=== PATIENT | female | born 1955 | race African-American/Black ===

== ENCOUNTER 2017-04-24 03:21 | Observation (INO) | payer OTHER, MEDICAID ==
[2017-04-24] VITALS (7 sets, daily range): BP systolic 128–156; BP diastolic 62–84; PULSE 83–97; RESP 16–20; TEMP 97.8–98.6; O2SAT 96–98
[~2017-04-24] VITALS: Ht 170.2 cm; Wt 60.0 kg
[~2017-04-24 03:21] MED LIST: BUPR100T4 PO; BUPR150CR PO; HALD50IN IM; HALDOL PO; HALO100P IM; HALO10TA PO; LISI-515 PO; NOVOLOGP2 SQ; SIMV20TA PO
[2017-04-24 03:58] LABS: AUTOMATED NEUTROPHIL # 2.8 TH/MM3 (1.8-7.7); BASOPHIL % 0.6 % (0.0-2.0); EOSINOPHIL # 0.2 TH/MM3 (0-0.4); EOSINOPHIL % 3.3 % (0.0-4.0); HEMATOCRIT 40.8 % (35.0-46.0); HEMOGLOBIN 13.7 GM/DL (11.6-15.3); LYMPH % 37.1 % (9.0-44.0); LYMPHOCYTE # 2.3 TH/MM3 (1.0-4.8); MEAN CELL VOLUME 85.9 FL (80.0-100.0); MEAN CORPUSCULAR HEMOGLOBIN 28.9 PG (27.0-34.0); MEAN CORPUSCULAR HGB CONC 33.6 % (32.0-36.0); MEAN PLATELET VOLUME 8.9 FL (7.0-11.0); MONO % 12.7 % (0.0-8.0); MONOCYTE # 0.8 TH/MM3 (0-0.9); NEUT % 46.3 % (16.0-70.0); PLATELET COUNT 241 TH/MM3 (150-450); RED BLOOD COUNT 4.75 MIL/MM3 (4.00-5.30); RED CELL DISTRIBUTION WIDTH 14.9 % (11.6-17.2); WHITE BLOOD COUNT 6.1 TH/MM3 (4.0-11.0)
[2017-04-24 04:16] LABS: ALKALINE PHOSPHATASE 105 U/L (45-117); TOTAL BILIRUBIN ADULT 0.3 MG/DL (0.2-1.0); TROPONIN I LESS THAN 0.02 NG/ML (0.02-0.05)
[2017-04-24 04:20] LABS: ALBUMIN 3.9 GM/DL (3.4-5.0); ALT (GPT) 47 U/L (10-53); AST (GOT) 37 U/L (15-37); BICARBONATE 29.5 MEQ/L (21.0-32.0); BLOOD UREA NITROGEN 14 MG/DL (7-18); CALCIUM 8.8 MG/DL (8.5-10.1); CHLORIDE 104 MEQ/L (98-107); CREATININE 1.19 MG/DL (0.50-1.00); GLOMERULAR FILTRATION RATE 55 ML/MIN (>89); GLUCOSE,RANDOM 112 MG/DL (74-106); LIPASE 106 U/L (73-393); SODIUM (NA) 139 MEQ/L (136-145)
--- NOTE | 2017-04-24 04:36 | PD ---
HPI Chief Complaint: Dizziness Time Seen by Provider: 03:32 Travel History International Travel<30 days: No Contact w/Intl Traveler<30days: No Traveled to known affect area: No History of Present Illness HPI Patient is a 62-year-old female who woke up in the middle of the night diaphoretic dizzy and nauseous. She called the paramedics they found her to be mildly hypoglycemic 86 finger stick. She reports she becomes symptomatic at that level of blood sugar. She takes NovoLog in the morning and the night yesterday was her birthday so she was out and she did not eat as much as she normally would have and thinks maybe this the reason her sugar bottomed out in the night. She has a history of diabetes insulin-dependent and she also has a psychiatric history for she is on Haldol and Wellbutrin he has had no change in her medications and no change in her insulin regimen. Denies dysuria or any other source of infection that could cause sugar to bottom out, pt reports having had CP in the ambulnce and the PAaramendics did rhythm strip which showed bigeminy. but in ER no bigeminy seen. I reports this to pt and she says it was due her haldol and wellbutrin. .. PFSH Past Medical History Hx Anticoagulant Therapy: No Autoimmune Disease: No Blood Disorders: No Bipolar Disorder: Yes (DX 1986) Depression: Yes Cancer: No Cardiovascular Problems: No Chemotherapy: No Cerebrovascular Accident: No Diabetes: Yes Patient Takes Glucophage: No Diminished Hearing: No Endocrine: Yes Genitourinary: No Hypertension: Yes Immune Disorder: No Implanted Vascular Access Dvce: Yes Musculoskeletal: No Neurologic: No Psychiatric: Yes (Extensive hx of treatment for Schizophrenia) Reproductive: No Respiratory: No Immunizations Current: Yes Migraines: No Radiation Therapy: No Schizophrenia: Yes Seizures: No Sickle Cell Disease: No Influenza Vaccination: No Menopausal: Yes : 2 Para: 2 Ectopic : No Ovarian Cysts: No Tubal Ligation: Yes Past Surgical History Abdominal Surgery: No AICD: No Arteriovenous Shunt: No Cardiac Surgery: No Section: No Ear Surgery: No Endocrine Surgery: No Eye Surgery: No Genitourinary Surgery: No Gynecologic Surgery: No Hysterectomy: No Insulin Pump: No Joint Replacement: No Oral Surgery: No Pacemaker: No Thoracic Surgery: No Other Surgery: Yes Social History Alcohol Use: No Tobacco Use: Yes Substance Use: No Allergies-Medications (Allergen,Severity, Reaction): Coded Allergies: carbamazepine (Unverified Allergy, Mild, RASH/HIVES, 04/24/17) Uncoded Allergies: ORAGEL (Allergy, Mild, LIP HAS SWELLED SINCE STARTING, 05/15/07) Reported Meds & Prescriptions Reported Meds & Active Scripts Active Haldol Decanoate Inj (Haloperidol Decanoate) 50 Mg/Ml Inj 100 Mg IM Q30D 30 Days Haloperidol 10 Mg Tab 20 Mg PO BID 7 Days Wellbutrin SR 12 HR (Bupropion HCl) 150 Mg Tab 150 Mg PO BID 14 Days Reported Simvastatin 20 Mg Tab 20 Mg PO DAILY Novolog Inj (Insulin Aspart) 1,000 Unit/10 Ml Vial 20 Units SQ BID Lisinopril 20 Mg Tab 20 Mg PO BID Review of Systems Except as stated in HPI: all other systems reviewed are Neg General / Constitutional: Positive: Chills Gastrointestinal: Positive: Nausea (sweating nausea diaphoretic) Skin: Positive Other (diaphoresis while awakened in bed dizziness ) Physical Exam Narrative GENERAL: slightly flat affected SKIN: Warm and dry. HEAD: Atraumatic. Normocephalic. EYES: Pupils equal and round. No scleral icterus. No injection or drainage. ENT: No nasal bleeding or discharge. Mucous membranes pink and moist. NECK: Trachea midline. No JVD. CARDIOVASCULAR: Regular rate and rhythm. RESPIRATORY: No accessory muscle use. Clear to auscultation. Breath sounds equal bilaterally. GASTROINTESTINAL: Abdomen soft, non-tender, nondistended. Hepatic and splenic margins not palpable. MUSCULOSKELETAL: Extremities without clubbing, cyanosis, or edema. No obvious deformities. NEUROLOGICAL: Awake and alert. No obvious cranial nerve deficits. Motor grossly within normal limits. Five out of 5 muscle strength in the arms and legs. Normal speech. PSYCHIATRIC: Appropriate mood and affect; insight and judgment normal. EKG NSR [address] segmental depression nor elevation Data Data Last Documented VS Vital Signs Date Time Temp Pulse Resp B/P (MAP) Pulse Ox O2 Delivery O2 Flow Rate FiO2 04/24/17 03:33 98.6 97 16 128/62 (84) 97 Orders Orders Electrocardiogram (04/24/17 03:38) Complete Blood Count With Diff (04/24/17 03:38) Comprehensive Metabolic Panel (04/24/17 03:38) Troponin I (1/27/18 03:38) Lipase (04/24/17 03:38) Ua Includes Microscopic (04/24/17 03:38) Admit Order (Ed Use Only) (04/24/17 05:54) Place In Observation (04/24/17 05:55) Activity Bed Rest With Brp (04/24/17 05:55) Vital Signs (Adult) Q4H (04/24/17 05:55) Cardiac Rhythm .As Directed (04/24/17 05:55) Notify Dr: Other .PRN (04/24/17 05:55) Notify Dr. Parameters (04/24/17 05:55) Resp Oxygen Nasal Cannula (04/24/17 ) Ckmb (Isoenzyme) Profile (04/24/17 05:55) Ckmb (Isoenzyme) Profile (04/24/17 08:55) Troponin I (04/24/17 05:55) Troponin I (04/24/17 08:55) Electrocardiogram (04/24/17 05:55) Electrocardiogram (04/24/17 08:55) ^ Obtain (04/24/17 05:55) Sodium Chloride 0.9% Flush (Ns Flush) (04/24/17 06:00) Sodium Chloride 0.9% Flush (Ns Flush) (04/24/17 09:00) Dental Ceramist Helper / Telemetry JOSE.Q8H (04/24/17 05:55) CKMB (04/24/17 06:40) CKMB% (04/24/17 06:40) CKMB (04/24/17 09:48) CKMB% (04/24/17 09:48) Labs Laboratory Tests Test 04/24/17 03:40 04/24/17 04:30 White Blood Count 6.1 TH/MM3 Red Blood Count 4.75 MIL/MM3 Hemoglobin 13.7 GM/DL Hematocrit 40.8 % Mean Corpuscular Volume 85.9 FL Mean Corpuscular Hemoglobin 28.9 PG Mean Corpuscular Hemoglobin Concent 33.6 % Red Cell Distribution Width 14.9 % Platelet Count 241 TH/MM3 Mean Platelet Volume 8.9 FL Neutrophils (%) (Auto) 46.3 % Lymphocytes (%) (Auto) 37.1 % Monocytes (%) (Auto) 12.7 % Eosinophils (%) (Auto) 3.3 % Basophils (%) (Auto) 0.6 % Neutrophils # (Auto) 2.8 TH/MM3 Lymphocytes # (Auto) 2.3 TH/MM3 Monocytes # (Auto) 0.8 TH/MM3 Eosinophils # (Auto) 0.2 TH/MM3 Basophils # (Auto) 0.0 TH/MM3 CBC Comment DIFF FINAL Differential Comment Blood Urea Nitrogen 14 MG/DL Creatinine 1.19 MG/DL Random Glucose 112 MG/DL Total Protein 8.3 GM/DL Albumin 3.9 GM/DL Calcium Level 8.8 MG/DL Alkaline Phosphatase 105 U/L Aspartate Amino Transf (AST/SGOT) 37 U/L Alanine Aminotransferase (ALT/SGPT) 47 U/L Total Bilirubin 0.3 MG/DL Sodium Level 139 MEQ/L Potassium Level 4.2 MEQ/L Chloride Level 104 MEQ/L Carbon Dioxide Level 29.5 MEQ/L Anion Gap 6 MEQ/L Estimat Glomerular Filtration Rate 55 ML/MIN Troponin I LESS THAN 0.02 NG/ML Lipase 106 U/L Urine Color DARK-YELLOW Urine Turbidity HAZY Urine pH 5.5 Urine Specific [place] 1.035 Urine Protein 100 mg/dL Urine Glucose (UA) 300 mg/dL Urine Ketones TRACE mg/dL Urine Occult Blood NEG Urine Nitrite NEG Urine Bilirubin NEG Urine Urobilinogen 2.0 MG/DL Urine Leukocyte Esterase SMALL Urine RBC 1 /hpf Urine WBC 8 /hpf Urine Squamous Epithelial Cells 3 /hpf Urine Hyaline Casts 10 /lpf Urine Mucus MANY /lpf MDM Medical Decision Making Medical Screen Exam Complete: Yes Emergency Medical Condition: Yes Differential Diagnosis chest pain of ischemia vs hypoglycemic symptomatology , vs ectopy causing dizziness vs Neurologic cause of dizziness. Bigeminy in ambulance Narrative Course Pt is worked up for ischemia cause of her dizziness and sweating episode in bed. her bigeminy she thinks could be due to haldol and wellbutrin, first trop negative her first EKG is NSR no ectopy will admit Jose Luis Alejandre MD Apr 24, 2017 04:36
[2017-04-24 04:49] LABS: TOTAL PROTEIN 8.3 GM/DL (6.4-8.2)
[2017-04-24 05:00] LABS: BLOOD, URINE NEG (NEG); GLUCOSE,URINE 300 mg/dL (NEG); HYALINE CAST, URINE 10 /lpf (RARE); KETONE, URINE TRACE mg/dL (NEG); MUCUS URINE MANY /lpf (OCC); NITRITE,URINE NEG (NEG); PH, URINE 5.5 (5.0-8.5); SQUAMOUS EPITHELIAL CELL URINE 3 /hpf (0-5); URINE COLOR DARK-YELLOW (YELLW/STRAW); URINE LEUKOCYTE ESTERASE SMALL (NEG)
[2017-04-24 05:02] LABS: BILIRUBIN, URINE NEG (NEG)
[2017-04-24] MEDS ORDERED: SODIUM CHLORIDE 0.9% FLUSH 10 ML FLUSH IV FLUSH PRN (06:00)
[2017-04-24] MEDS ORDERED: ASPIRIN 81 MG CHEW TAB CHEW ONE (06:45)
[2017-04-24] MEDS ORDERED: ONDANSETRON HCL 4 MG/2 ML VIAL IV PUSH PRN (07:30)
[2017-04-24] MEDS ORDERED: ACETAMINOPHEN 500 MG CPLT PO PRN (07:30)
[2017-04-24] MEDS ORDERED: NITROGLYCERIN 0.4 MG SL 25 TABS/BTL SL PRN (07:30)
[2017-04-24 07:44] LABS: TROPONIN I LESS THAN 0.02 NG/ML (0.02-0.05)
--- NOTE | 2017-04-24 07:46 | HHI.HP ---
HPI Primary Care Physician Christoph Prabhakar MD Chief Complaint Chest pain History of Present Illness 62-year-old male with history of type 2 diabetes, hypertension, hyperlipidemia, and current smoker presents to emergency room for further evaluation of dizziness. Reporting early this morning woke up feeling dizzy and nauseous. Became worried symptoms may be related to blood glucose, therefore called EMS. Glucose reported to be 86 prior to EMS arrival and a glucose of 115 taken by EMS. During EVAC ride, developed chest pain. Onset approximately 2 AM. Location substernal. Characterized as sharp, needle pain. No radiation. Associated symptoms of nausea and diaphoresis. Denied vomiting or dyspnea. Duration 20 minutes. Denies similar pain in the past. No known precipitating or relieving factors. Continues to have intermittent sharp pain since arrival to ER. Review of Systems General: No fatigue,weakness, fever, chills, recent illness, or change in appetite. Has been her general state of health. HEENT: No HINKLE, no vision changes, no nasal congestion or drainage, no dysphasia CV: As stated above. No palpitations or dizziness. RESP: No SOB, cough, wheeze. 2 weeks ago seen by her PCP for coughing up blood and was told blood was due to irritation from coughing. Symptoms resolved within 2 days. GI: No nausea, vomiting, bowel changes, diarrhea, constipation, pain, distention , melena, or blood in the stool. No unintentional weight gain or weight loss. : No dysuria, urgency, frequency EXT: No lower leg edema, no paraesthesias MS: No discomfort or change in ROM NEURO: No difficulty with balance, LOC, motor/sensory deficits PSYCH: History of bipolar, reports stable on current medication regimen. No depression or suicidal ideation SKIN: No rashes, no concerning lesions Past Family Social History Allergies: Coded Allergies: carbamazepine (Unverified Allergy, Mild, RASH/HIVES, 04/24/17) Uncoded Allergies: ORAGEL (Allergy, Mild, LIP HAS SWELLED SINCE STARTING, 05/15/07) Past Medical History Type 2 diabetes (dx late , reportedly well controlled), reported disorder, hypertension, hyperlipidemia, current smoker Past Surgical History Tubal ligation Reported Medications Reported Meds & Active Scripts Active Haloperidol 10 Mg Tab 20 Mg PO BID 7 Days Wellbutrin SR 12 HR (Bupropion HCl) 150 Mg Tab 150 Mg PO BID 14 Days Simvastatin 20 Mg Tab 20 Mg PO DAILY Novolog Inj (Insulin Aspart) 1,000 Unit/10 Ml Vial 20 Units SQ TID Lisinopril 20 Mg Tab 20 Mg PO BID Metformin 1000mg PO BID Novolin 65 units BID Active Ordered Medications Current Medications Medications (Trade) Dose Ordered Sig/Woody Route Start Time Stop Time Status Last Admin (NS Flush) 2 ml UNSCH PRN IV FLUSH 04/24/17 06:00 (NS Flush) 2 ml BID IV FLUSH 04/24/17 09:00 (Tylenol) 500 mg Q4H PRN PO 04/24/17 07:30 (Zofran Inj) 4 mg Q6H PRN IV PUSH 04/24/17 07:30 (Nitrostat Sl) 0.4 mg Q5M PRN SL 04/24/17 07:30 (Aspirin) 325 mg DAILY PO 04/24/17 09:00 Family History Noncontributory for early onset cardiovascular disease. Social History Known hypertension, hyperlipidemia, and diabetes. No known coronary artery disease. Current smoker one pack/daily, reports formerly smoking 2 packs/daily. Denies any alcohol or illegal drug use. , unemployed. Grown children live locally. Past cardiac testing None Physical Exam Vital Signs Vital Signs Date Time Temp Pulse Resp B/P (MAP) Pulse Ox O2 Delivery O2 Flow Rate FiO2 04/24/17 07:00 78 16 99 Room Air 04/24/17 07:00 97.8 78 16 133/68 (89) 99 04/24/17 06:24 98 04/24/17 06:16 87 16 135/63 (87) 98 Room Air 04/24/17 03:33 98.6 97 16 128/62 (84) 97 Physical Exam GENERAL: Alert WN, WD, NAD, pleasant, obese, female HEAD: NC, AT EYES: Sclera clear, conjunctiva without injection, pupils equal and round ENT: Mucous membranes pink and moist NECK: Supple, no masses, trachea midline CV: RRR, without murmur, rub, gallop, no JVD, S1-S2 no S3-S4. No carotid bruits. Chest wall pain reproduced with palpation. RESP: Clear lungs throughout bilateral, no crackles, wheeze, rhonchi, symmetrical chest rise, nonlabored, able to speak in full sentences ABD: Soft, NT, ND, no masses, positive bowel tones EXT: Pulses +24, no dependent edema MS: Normal tone 4 extremities, nontender, no obvious deformities, full range of motion NEURO: CN II through CN XII grossly intact, motor strength 5/5 PSYCH: A+O 3, pleasant affect, appropriate speech, mood, insight and judgment SKIN: Normal turgor, normal texture, no lesions, no rashes Laboratory Laboratory Tests Test 04/24/17 03:40 04/24/17 04:30 04/24/17 06:40 White Blood Count 6.1 Red Blood Count 4.75 Hemoglobin 13.7 Hematocrit 40.8 Mean Corpuscular Volume 85.9 Mean Corpuscular Hemoglobin 28.9 Mean Corpuscular Hemoglobin Concent 33.6 Red Cell Distribution Width 14.9 Platelet Count 241 Mean Platelet Volume 8.9 Neutrophils (%) (Auto) 46.3 Lymphocytes (%) (Auto) 37.1 Monocytes (%) (Auto) 12.7 Eosinophils (%) (Auto) 3.3 Basophils (%) (Auto) 0.6 Neutrophils # (Auto) 2.8 Lymphocytes # (Auto) 2.3 Monocytes # (Auto) 0.8 Eosinophils # (Auto) 0.2 Basophils # (Auto) 0.0 CBC Comment DIFF FINAL Differential Comment Blood Urea Nitrogen 14 Creatinine 1.19 Random Glucose 112 Total Protein 8.3 Albumin 3.9 Calcium Level 8.8 Alkaline Phosphatase 105 Aspartate Amino Transf (AST/SGOT) 37 Alanine Aminotransferase (ALT/SGPT) 47 Total Bilirubin 0.3 Sodium Level 139 Potassium Level 4.2 Chloride Level 104 Carbon Dioxide Level 29.5 Anion Gap 6 Estimat Glomerular Filtration Rate 55 Troponin I LESS THAN 0.02 LESS THAN 0.02 Lipase 106 Urine Color DARK-YELLOW Urine Turbidity HAZY Urine pH 5.5 Urine Specific [place] 1.035 Urine Protein 100 Urine Glucose (UA) 300 Urine Ketones TRACE Urine Occult Blood NEG Urine Nitrite NEG Urine Bilirubin NEG Urine Urobilinogen 2.0 Urine Leukocyte Esterase SMALL Urine RBC 1 Urine WBC 8 Urine Squamous Epithelial Cells 3 Urine Hyaline Casts 10 Urine Mucus MANY Total Creatine Kinase 319 Result Diagram: 04/24/17 0340 04/24/17 0340 Imaging Last 48 hours Impressions Chest X-Ray 04/24/17 0000 Signed Impressions: Service Date/Time: Monday, April 24, 2017 07:47 - CONCLUSION: Left lower lobe airspace consolidation versus atelectasis. Tayla Menendez MD Course EKG Normal sinus rhythm, no st t segment changes Caprini VTE Risk Assessment Caprini VTE Risk Assessment: Mod/High Risk (score >= 2) Caprini Risk Assessment Model Point Value = 1 Point Value = 2 Point Value = 3 Point Value = 5 Age 41-60 Minor surgery BMI > 25 kg/m2 Swollen legs Varicose veins or History of unexplained or recurrent spontaneous Oral contraceptives or hormone replacement Sepsis (< 1 month) Serious lung disease, including pneumonia (< 1 month) Abnormal pulmonary function Acute myocardial infarction Congestive heart failure (< 1 month) History of inflammatory bowel disease Medical patient at bed rest Age 61-74 Arthroscopic surgery Major open surgery (> 45 min) Laparoscopic surgery (> 45 min) Malignancy Confined to bed (> 72 hours) Immobilizing plaster cast Central venous access Age >= 75 History of VTE Family history of VTE Factor V Leiden Prothrombin [id number] Lupus anticoagulant Anticardiolipin antibodies Elevated serum homocysteine Heparin-induced thrombocytopenia Other congenital or acquired thrombophilia Stroke (< 1 month) Elective arthroplasty Hip, pelvis, or leg fracture Acute spinal cord injury (< 1 month) Prophylaxis Regimen Total Risk Factor Score Risk Level Prophylaxis Regimen 0-1 Low Early ambulation 2 Moderate Order ONE of the following: *Sequential Compression Device (SCD) *Heparin 5000 units SQ BID 3-4 Higher Order ONE of the following medications: *Heparin 5000 units SQ TID *Enoxaparin/Lovenox 40 mg SQ daily (WT < 150 kg, CrCl > 30 mL/min) *Enoxaparin/Lovenox 30 mg SQ daily (WT < 150 kg, CrCl > 10-29 mL/min) *Enoxaparin/Lovenox 30 mg SQ BID (WT < 150 kg, CrCl > 30 mL/min) AND/OR *Sequential Compression Device (SCD) 5 or more Highest Order ONE of the following medications: *Heparin 5000 units SQ TID (Preferred with Epidurals) *Enoxaparin/Lovenox 40 mg SQ daily (WT < 150 kg, CrCl > 30 mL/min) *Enoxaparin/Lovenox 30 mg SQ daily (WT < 150 kg, CrCl > 10-29 mL/min) *Enoxaparin/Lovenox 30 mg SQ BID (WT < 150 kg, CrCl > 30 mL/min) AND *Sequential Compression Device (SCD) Assessment and Plan Assessment and Plan #1 Atypical chest pain-admitted to chest pain center. Rule out with 3 sets of EKGs, cardiac enzymes, and monitor on telemetry. Seen and evaluated by Dr. Charles Blanco. Proceed with Lexiscan this morning. If unremarkable, follow- up with primary physician Dr. Prabhakar. #2 History of type II diabetes-SSI moderate dose coverage, continue home insulin regimen after updated in medical records. #3 History of hypertension-continue lisinopril #4 History of hyperlipidemia-continue simvastatin #5 History of bipolar-continue Wellbutrin and Haldol #6 Tobacco abuse-strongly encouraged and stressed the importance of tobacco cessation. Instructed to quit smoking. Educated of premature cardiovascular risks of tobacco use. Ylui Galicia Apr 24, 2017 07:46
--- NOTE | 2017-04-24 08:10 | RADRPT ---
EXAM DATE/TIME: 04/24/2017 07:47 [facility] COMPARISON: No previous studies available for comparison. INDICATIONS : Midchest pain. MEDICAL HISTORY : Hypertension. Diabetes. SURGICAL HISTORY : None. ENCOUNTER: Initial ACUITY: 1 day PAIN SCORE: 10/10 LOCATION: Bilateral chest FINDINGS: Single AP portable upright view of the chest demonstrates loss of visualization of the left noemy-diap hragm and cardiac border. Findings are concerning for left lower lobe atelectasis versus airspace con solidation. The lungs are mildly hypoinflated. Heart size appears normal. Pulmonary vasculature appea rs normal. CONCLUSION: Left lower lobe airspace consolidation versus atelectasis. Tayla Menendez MD on April 24, 2017 at 8:06 Board Certified Radiologist. This report was verified electronically.
[2017-04-24] MEDS ORDERED: SODIUM CHLORIDE 0.9% FLUSH 10 ML FLUSH IV FLUSH SCH (09:00)
[2017-04-24] MEDS ORDERED: ASPIRIN 325 MG TAB PO SCH (09:00)
[2017-04-24 10:40] LABS: TROPONIN I LESS THAN 0.02 NG/ML (0.02-0.05)
[2017-04-24] MEDS ORDERED: DEXTROSE 50% IN WATER 50 ML VIAL(D50) IV PUSH PRN (10:45)
[2017-04-24] MEDS ORDERED: GLUCAGON 1 MG/ML VIAL OTHER PRN (10:45)
[2017-04-24] MEDS ORDERED: PRAVASTATIN SOD 40 MG TAB PO SCH (11:00)
[2017-04-24] MEDS ORDERED: buPROPion HCL 150 MG SUSTAINED RELEASE TAB PO SCH (11:00)
[2017-04-24] MEDS ORDERED: LISINOPRIL 20 MG TAB PO SCH (11:00)
[2017-04-24] MEDS ORDERED: PRAVASTATIN SOD 20 MG TAB PO SCH (11:30)
[2017-04-24] MEDS ORDERED: INSULIN ASPART SUPPLEMENTAL SCALE SQ SCH (12:00)
[2017-04-24] MEDS ORDERED: REGADENOSON INJ 0.4 MG/5 ML SYR ONE (13:47)
--- NOTE | 2017-04-24 15:14 | RADRPT ---
EXAM DATE/TIME: 04/24/2017 13:41 [facility] COMPARISON: No previous studies available for comparison. INDICATIONS : Substernal chest pain with nausea and dizziness. Angina. DOSE: 35 mCi Tc99m Myoview at stress. 11 mCi Tc99m Myoview at rest. 0.4 mg Lexiscan STRESS SYMPTOMS: Shortness of breath. EJECTION FRACTION: 49% MEDICAL HISTORY : Diabetes mellitus type 2. Hypertension. SURGICAL HISTORY : Tubal ligation. ENCOUNTER: Initial ACUITY: 1 day PAIN SCALE: 6/10 LOCATION: Substernal chest TECHNIQUE: The patient underwent pharmacologic stress with infusion of prescribed dose. Continuous ECG tracing was monitored during stress. Gated SPECT imaging was performed after stress and conventional SPECT i maging was performed at rest. The examination was performed on a SPECT/CT scanner, both attenuation and non-corrected datasets were reviewed. FINDINGS: DISTRIBUTION: The maximum perfused segment at stress is in the lateral wall. PERFUSION STUDY: The pattern of perfusion at stress is within normal limits. GATED STUDY: Mild hypokinesis septal wall. CONCLUSION: Mild hypokinesis of the septal wall. Ejection fraction 49%. No reversible perfusion defects. RISK CATEGORY: 2- Intermediate Risk Awais Goetz MD on April 24, 2017 at 15:10 Board Certified Radiologist. This report was verified electronically.
--- NOTE | 2017-04-24 15:30 | EKG ---
Date Performed: 04/24/2017 Time Performed: 09:51:34 PTAGE: 62 years EKG: Sinus rhythm NONSPECIFIC T-WAVE ABNORMALITY ABNORMAL ECG PREVIOUS TRACING : 04/24/2017 06.41 Since previous tracing, no significant change noted DOCTOR: Charles Blanco Interpretating Date/Time 04/24/2017 15:30:16
--- NOTE | 2017-04-24 15:31 | EKG ---
Date Performed: 04/24/2017 Time Performed: 06:41:39 PTAGE: 62 years EKG: Sinus rhythm NONSPECIFIC T-WAVE ABNORMALITY BORDERLINE ECG PREVIOUS TRACING : 04/24/2017 03.40 Since previous tracing, no significant change noted DOCTOR: Charles Blanco Interpretating Date/Time 04/24/2017 15:30:45
--- NOTE | 2017-04-24 15:31 | EKG ---
Date Performed: 04/24/2017 Time Performed: 03:40:38 PTAGE: 62 years EKG: Sinus rhythm NORMAL ECG PREVIOUS TRACING : 10/05/2007 16.06 Since previous tracing, no significant change noted DOCTOR: Charles Blanco Interpretating Date/Time 04/24/2017 15:31:10
--- NOTE | 2017-04-24 15:55 | HHI.DCPOC ---
Discharge Care Plan Diagnosis: (1) Atypical chest pain Goals to Promote Your Health * To prevent worsening of your condition and complications * To maintain your health at the optimal level Directions to Meet Your Goals Take your medications as prescribed Follow your dietary instruction Follow activity as directed Keep your appointments as scheduled Take your immunizations and boosters as scheduled If your symptoms worsen call your PCP, if no PCP go to Urgent Care Center or Emergency Room Smoking is Dangerous to Your Health. Avoid second hand smoke Call the 24-hour hour crisis hotline for domestic abuse at Yuli Galicia Apr 24, 2017 15:55
--- NOTE | 2017-04-25 12:14 | TR ---
Date Performed: 04/24/2017 Time Performed: 14:00:29 DOCTOR: John Andres DRUG LIST: CLINICAL HISTORY: CHEST PAIN REASON FOR TEST: CHEST PAIN REASON FOR ENDING: OBSERVATION: CONCLUSION: Lexiscan stress test was performed under standard four minute protocol. Radionuclide was injected one minute prior to ending the test. No electrocardiographic abormalities were present to suggest ischemia. Nuclear imaging and interpretation are pending. COMMENTS:
== END 2017-04-24 17:52 | disposition home or self-care (01) ==
LOC: NEPE 03:21 → NEDA 05:56 → NEPHCDU 06:26 → NEDH 06:37 → NEDA 06:44 → NEPGCP 07:26
DX: R42 Dizziness and giddiness (principal); Z79.4 Long term (current) use of insulin; E11.649 Type 2 diabetes mellitus with hypoglycemia without coma; F31.9 Bipolar disorder, unspecified; I10 Essential (primary) hypertension; F20.9 Schizophrenia, unspecified; F17.200 Nicotine dependence, unspecified, uncomplicated; Z79.899 Other long term (current) drug therapy; R07.89 Other chest pain; E78.5 Hyperlipidemia, unspecified; R94.31 Abnormal electrocardiogram [ECG] [EKG]
CPT/HCPCS: 71045; 78452; 80053; 81001; 82550; 82552; 82948; 83690; 84484; 85025; 93005; 93017; 99285; A9502; G0378; J2785